=== PATIENT | female | born 1955 | race Caucasian/White ===

== ENCOUNTER → 2023-10-06 11:30 | Outpatient (REF) | payer MEDICARE, SELFPAY | LOC: WDC 11:30 | PROVIDERS: ATTENDING PHYSICIAN Student in an Organized Health Care Education/Training Program | DX: Z12.31 Encounter for screening mammogram for malignant neoplasm of breast (principal) | CPT/HCPCS: 77063; 77067 ==

== ENCOUNTER → 2024-12-11 07:08 | Outpatient (REF) | payer MEDICARE, SELFPAY | LOC: HWRAD 07:08 | PROVIDERS: ATTENDING PHYSICIAN Student in an Organized Health Care Education/Training Program | DX: R59.0 Localized enlarged lymph nodes (principal) | CPT/HCPCS: 76536 ==